=== PATIENT | female | born 1985 | race Caucasian/White ===

== ENCOUNTER 2021-05-14 20:28 | Emergency (ER) | payer OTHER, SELFPAY ==
[2021-05-14 20:42] VITALS: BP 143/85; PULSE 71; RESP 18; TEMP 36.7; O2SAT 100; BMI 48.5
--- NOTE | 2021-05-14 21:18 | PC.NURSE ---
Pt is wearing own jeans as we do not have pants available in her size. Pockets were checked/empty.
[2021-05-14 21:21] LABS: COVID19 -Nasal RAPID Negative (Negative)
[2021-05-14 21:26] LABS: UR Morphine/Opiate cutoff 300 Negative (Negative); Ur Creatinine 20 (Normal); Ur Specific Gravity 1.015 (Normal); Urine Amphetamines Negative (Negative); Urine Cocaine Negative (Negative); Urine Methamphetamines Negative (Negative); Urine Phencyclidine Negative (Negative); Urine Tetrahydrocannabinol Negative (Negative); Urine pH 7 (Normal)
[2021-05-14 21:27] LABS: Urine Barbiturates Negative (Negative); Urine Benzodiazepines Negative (Negative); Urine MDMA Negative (Negative); Urine Methadone Negative (Negative); Urine Oxycodone Negative (Negative); Urine Tricyclic Antidepressant Negative (Negative)
[2021-05-14 21:28] LABS: Add Manual Diff / Slide Review NO; Basophils Absolute Auto 0 /uL (0-100); Basophils Percent Auto 0.5 % (0-2); Eosinophils Absolute Auto 100 /uL (0-450); Eosinophils Percent Auto 1.2 % (2-4); Hematocrit 39.7 % (36-46); Hemoglobin 13.5 g/dL (12.0-16.0); Lymphocytes Absolute Auto 2200 /uL (1100-4500); Lymphocytes Percent Auto 26.1 % (25-40); Mean Corpuscular Hemoglobin 30.5 PG (26-34); Mean Corpuscular Volume 89.7 fL (80-100); Monocytes Absolute Auto 1000 /uL (0-900); Neutrophils Absolute Auto 4900 /uL (1500-7000); Neutrophils Percent Auto 60.2 % (50-75); Platelet Count 238 X10^3/uL (150-400); Red Blood Cell Count 4.43 X10^6/uL (4.0-5.2); Red Cell Distribution Width 13.6 % (11.6-14.8); White Blood Cell Count 8.2 X10^3/uL (4.5-11.0)
[2021-05-14 21:32] LABS: Acetaminophen < 10 ug/mL (10-30); Alanine Aminotransferase 28 IU/L (<35); Albumin 4.3 g/dL (3.5-5.0); Albumin Globulin Ratio 1.7 (1.0-2.8); Alkaline Phosphatase 62 U/L (38-126); Aspartate Aminotransferase 28 IU/L (14-36); BUN Creatinine Ratio 12.1 (6-22); Bilirubin Total 0.3 mg/dL (0.2-1.3); Blood Urea Nitrogen 11 mg/dL (7-17); Calcium 8.8 mg/dL (8.4-10.2); Carbon Dioxide 33 mmol/L (22-32); Chloride 100 mmol/L (98-107); Estimated Glomerular Filt Rate > 60.0 mL/min (>60); Ethanol (ETOH) < 10 mg/dL; Globulin 2.6 g/dL (1.7-4.1); Glucose 81 mg/dL (70-100); HEMOLYSIS < 15 (0-50); Salicylate < 1.0 mg/dL (<20); Sodium 138 mmol/L (137-145); Total Protein 6.9 g/dL (6.3-8.2)
[2021-05-14 22:04] LABS: Free T4, Direct Thyroxine 1.02 ng/dL (0.78-2.19)
--- NOTE | 2021-05-14 22:40 | PC.NURSE ---
The patient is a healthy 35 year old female who has a positive and supportive home environment with friends and family within close proximity. She states that she feel depressed and wants to stop hurting all the time and wants to run away so that her mental health is not a burden on her family. She attributes these feelings to passed trauma and is currently being seen by a psychiatrist for these issues. She stated that she saw a counselor in the past but stopped going because she doesn't want to face the hard questions and she is also a private person and doesn't want people to know how messed up she is and she felt her counselor was seeing into to her to well and that scared her so she quit going. She has two girls at home and a significant other and they are going to be moving into a new home soon which they have been building with [employer]. Despite positive things in her life she still can't escape her feelings of hopelessness, depression, and fear. 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
--- NOTE | 2021-05-14 23:06 | PC.NURSE ---
Her significant other's name is Larissa
--- NOTE | 2021-05-14 23:18 | ED_ITS ---
HPI - Psych <Amanda Durand DO - Last Filed: 05/18/21 18:25> General Chief Complaint: Psychiatric Symptoms Stated Complaint: Not having a good day sucidal Time Seen by Provider: 05/14/21 22:59 Source: patient Mode of arrival: Ambulatory History of Present Illness HPI Narrative: Patient is a 35-year-old female with history of hypothyroid, depression anxiety presenting today with suicidal ideations. She says that she has had ongoing depression progressively getting worse. She has had suicidal attempts or [place] thoughts she has tried to take pills or driveway however her partner stops her from doing any such thing. She has not been hospitalized for mental illness as an adult her mother had threatened it as a child. She said she has had mental health illness for most of her life. She has 2 children 2 girls 9-year-old and 7-year-old she says that she feels extremely anxious without them at all times they went to a birthday libertarian today without her fall causing her to have severe anxiety. She then took the car keys and started driving. She was not sure where she was going she wanted to go to the bridge to potentially jump off however she missed her turn and came here instead. She is currently voluntary seeking treatment. She does see Psychiatry Phoebe Boogie, him she says has helped her a lot. Related Data Home Medications Medication Instructions Recorded Confirmed alprazolam 0.5 mg tablet 0.5 mg PO TID PRN 05/14/21 05/14/21 aripiprazole 2 mg tablet 2 mg PO BID 05/14/21 05/14/21 lamotrigine 100 mg tablet 200 mg PO DAILY 05/14/21 05/14/21 levothyroxine 88 mcg tablet 88 mcg PO DAILY 05/14/21 05/14/21 methylphenidate HCl 30 mg biphasic 30 mg PO DAILY 05/14/21 05/14/21 50-50 capsule,extended release primidone 50 mg tablet 100 mg PO QPM 05/14/21 05/14/21 venlafaxine 150 mg 150 mg PO DAILY 05/14/21 05/14/21 capsule,extended release 24 hr Allergies Allergy/AdvReac Type Severity Reaction Status Date / Time hydrocodone Allergy Hallucinati Verified 05/14/21 20:42 ng Review of Systems <DO John Corbin Last Filed: 05/18/21 18:25> Review of Systems Narrative: GENERAL: Denies chills, fatigue, malaise, fever, sweats, travel HEENT: Denies sinus pain, ear pain, sore throat, difficulty swallowing, neck pain RESPIRATORY: Denies dyspnea, cough, wheezing, hemoptysis, sputum. CARDIOVASCULAR: Denies chest pain, palpitations, orthopnea, edema GASTROINTESTINAL: Denies nausea, vomiting, abdominal pain, diarrhea, constipation, melena. : Denies dysuria, frequency, incontinence, hematuria, urinary retention, flank pain. MUSCULOSKELETAL: Denies weakness, joint pain, or bony pain SKIN: No rash, no erythema, no pruritus NEUROLOGIC: Denies weakness, dizziness, headache, numbness, change in speech, confusion PSYCHIATRIC: See HPI 12 point review of systems is negative except for those stated above and HPI Patient History <Amanda Durand DO - Last Filed: 05/18/21 18:25> Social History Smoking Status: Never smoker Smoking Status: Never smoker Substance Use Type: does not use Exam <Amanda Durand DO - Last Filed: 05/18/21 18:25> Initial Vital Signs Initial Vital Signs: Vital Signs Temperature 98.1 F 05/14/21 20:42 Pulse Rate 71 05/14/21 20:42 Respiratory Rate 18 05/14/21 20:42 Blood Pressure 143/85 H 05/14/21 20:42 Pulse Oximetry 100 05/14/21 20:42 GENERAL: Well-appearing 35-year-old female drawing at bedside cooperative CARDIOVASCULAR: peripheral pulses in tact, cap refill <2 sec RESPIRATORY: No respiratory distress, speaks in full sentences without difficulty EXTREMITIES: Normal range of motion, no clubbing or edema. Neurovascularly intact NEUROLOGICAL: Cranial nerves II through XII grossly intact. Normal gait and speech. SKIN: Warm, dry, no petechiae, no rashes or lesions. <Pilar Araujo DO - Last Filed: 05/15/21 18:35> Initial Vital Signs Initial Vital Signs: Vital Signs Temperature 98.1 F 05/14/21 20:42 Pulse Rate 71 05/14/21 20:42 Respiratory Rate 18 05/14/21 20:42 Blood Pressure 143/85 H 05/14/21 20:42 Pulse Oximetry 100 05/14/21 20:42 Course <Amanda Durand DO - Last Filed: 05/18/21 18:25> Orders Ordered: Discontinued Medications Lorazepam (Lorazepam 0.5 Mg Tablet) 1 mg PO NOW ONE Stop: 05/15/21 07:44 Last Admin: 05/15/21 07:48 Dose: 1 mg Documented by: NUNU Vital Signs Vital signs: Vital Signs - 8 hr 05/15/21 11:06 Pulse Rate 66 Respiratory Rate 16 Blood Pressure 110/71 Pulse Oximetry 99 <Pilar Araujo DO - Last Filed: 05/15/21 18:35> Orders Ordered: Discontinued Medications Lorazepam (Lorazepam 0.5 Mg Tablet) 1 mg PO NOW ONE Stop: 05/15/21 07:44 Last Admin: 05/15/21 07:48 Dose: 1 mg Documented by: NUNU Reevaluation(s) Reevaluation #1: Patient is feeling quite anxious. We reviewed what she discussed with Dr. Durand overnight. She has been in touch with her family and states she gets very anxious when she is out of her normal pattern. She does normally take Xanax at and we discussed trying a dose of this. PAPER PROCESSING MACHINE HELPER should be here at noon today. Also going to get her some breakfast. Patient is agreeable to this. Time: 07:43 Reevaluation #2: Patient and I reviewed she cannot be medically cleared until 9:30-10pm tonight and will potentially be here overnight until decision is made about plan and safety whether she is safe to return home or needs to go to a facility. Patient expresses her understanding. Vital Signs Vital signs: Vital Signs - 8 hr 05/15/21 11:06 Pulse Rate 66 Respiratory Rate 16 Blood Pressure 110/71 Pulse Oximetry 99 MDM - Psych <Amanda Durand, DO - Last Filed: 05/18/21 18:25> Lab Data Result diagrams: 05/14/21 21:10 05/14/21 21:10 Labs: Lab Results 05/14/21 05/14/21 05/14/21 Range/Units 20:55 20:55 21:10 WBC 8.2 (4.5-11.0) X10^3/uL RBC 4.43 (4.0-5.2) X10^6/uL Hgb 13.5 (12.0-16.0) g/dL Hct 39.7 (36-46) % MCV 89.7 (80-100) fL MCH 30.5 (26-34) PG MCHC 34.0 (30-36) % RDW 13.6 (11.6-14.8) % Plt Count 238 (150-400) X10^3/uL Neut % (Auto) 60.2 (50-75) % Lymph % (Auto) 26.1 (25-40) % [place] % (Auto) 12.0 (3-14) % Eos % (Auto) 1.2 L (2-4) % Baso % (Auto) 0.5 (0-2) % Neut # (Auto) 4900 (6443-4480) /uL Lymph # (Auto) 2200 (7734-9364) /uL [place] # (Auto) 1000 H (0-900) /uL Eos # (Auto) 100 (0-450) /uL Baso # (Auto) 0 (0-100) /uL Sodium (137-145) mmol/L Potassium (3.4-5.1) mmol/L Chloride (98-107) mmol/L Carbon Dioxide (22-32) mmol/L BUN (7-17) mg/dL Creatinine (0.52-1.04) mg/dL Estimated GFR (>60) mL/min BUN/Creatinine Ratio (6-22) Glucose (70-100) mg/dL Calcium (8.4-10.2) mg/dL Total Bilirubin (0.2-1.3) mg/dL AST (14-36) IU/L ALT (<35) IU/L Alkaline Phosphatase (38-126) U/L Total Protein (6.3-8.2) g/dL Albumin (3.5-5.0) g/dL Globulin (1.7-4.1) g/dL Albumin/Globulin Ratio (1.0-2.8) TSH (0.47-4.68) uIU/mL Free T4 (0.78-2.19) ng/dL Salicylates (<20) mg/dL U Opiates 300ng/mL cut Negative (Negative) Ur Oxycodone Screen Negative (Negative) Urine Methadone Screen Negative (Negative) Acetaminophen (10-30) ug/mL Ur Barbiturates Screen Negative (Negative) U Tricyclic Antidepress Negative (Negative) Ur Phencyclidine Scrn Negative (Negative) Ur Amphetamines Screen Negative (Negative) U Methamphetamines Scrn Negative (Negative) Ur MDMA Scrn (Ecstasy) Negative (Negative) U Benzodiazepines Scrn Negative (Negative) Urine Cocaine Screen Negative (Negative) U Marijuana (THC) Screen Negative (Negative) Ethyl Alcohol ( - 10) mg/dL SARS-CoV-2 (PCR) Negative (Negative) 05/14/21 05/14/21 Range/Units 21:10 21:10 WBC (4.5-11.0) X10^3/uL RBC (4.0-5.2) X10^6/uL Hgb (12.0-16.0) g/dL Hct (36-46) % MCV (80-100) fL MCH (26-34) PG MCHC (30-36) % RDW (11.6-14.8) % Plt Count (150-400) X10^3/uL Neut % (Auto) (50-75) % Lymph % (Auto) (25-40) % [place] % (Auto) (3-14) % Eos % (Auto) (2-4) % Baso % (Auto) (0-2) % Neut # (Auto) (6628-5619) /uL Lymph # (Auto) (5645-0974) /uL [place] # (Auto) (0-900) /uL Eos # (Auto) (0-450) /uL Baso # (Auto) (0-100) /uL Sodium 138 (137-145) mmol/L Potassium 4.0 (3.4-5.1) mmol/L Chloride 100 (98-107) mmol/L Carbon Dioxide 33 H (22-32) mmol/L BUN 11 (7-17) mg/dL Creatinine 0.91 (0.52-1.04) mg/dL Estimated GFR > 60.0 (>60) mL/min BUN/Creatinine Ratio 12.1 (6-22) Glucose 81 (70-100) mg/dL Calcium 8.8 (8.4-10.2) mg/dL Total Bilirubin 0.3 (0.2-1.3) mg/dL AST 28 (14-36) IU/L ALT 28 (<35) IU/L Alkaline Phosphatase 62 (38-126) U/L Total Protein 6.9 (6.3-8.2) g/dL Albumin 4.3 (3.5-5.0) g/dL Globulin 2.6 (1.7-4.1) g/dL Albumin/Globulin Ratio 1.7 (1.0-2.8) TSH 2.00 (0.47-4.68) uIU/mL Free T4 1.02 (0.78-2.19) ng/dL Salicylates < 1.0 (<20) mg/dL U Opiates 300ng/mL cut (Negative) Ur Oxycodone Screen (Negative) Urine Methadone Screen (Negative) Acetaminophen < 10 L (10-30) ug/mL Ur Barbiturates Screen (Negative) U Tricyclic Antidepress (Negative) Ur Phencyclidine Scrn (Negative) Ur Amphetamines Screen (Negative) U Methamphetamines Scrn (Negative) Ur MDMA Scrn (Ecstasy) (Negative) U Benzodiazepines Scrn (Negative) Urine Cocaine Screen (Negative) U Marijuana (THC) Screen (Negative) Ethyl Alcohol < 10 ( - 10) mg/dL SARS-CoV-2 (PCR) (Negative) Point of Care Testing Test Results Negative Urine Dip Bedside Urine Glucose Negative Bedside Urine Bilirubin - Negative Bedside Urine Ketone - Negative Urine Specific [place] 1.015 Bedside Urine Occult Blood - Negative Bedside Urine pH 6.5 Bedside Urine Protein - Negative Bedside Urine Urobilinogen - Negative Bedside Urine Nitrite - Negative Bedside Urine Leukocytes - Negative Esterase MDM Narrative Medical decision making narrative: The patient is voluntary and cooperative in the emergency department. Wants to go to a facility awaiting for social work evaluation. Signed out to Dr. Araujo This is a 35-year-old female with known history of depression, suicidal ideation who is currently here voluntarily. Plan is for patient to be with PAPER PROCESSING MACHINE HELPER today. Patient is feeling quite anxious this morning she did have any medications overnight so dose of Ativan poor oral was ordered. On repeat examination patient is feeling improved after discussion with PAPER PROCESSING MACHINE HELPER. They have a clear plan in place for safety, resources and patient and both feel safe to return home patient states she feels stabilized at this point and after discussion is able to contract for safety. Patient discharged home with her . <Pilar Araujo, DO - Last Filed: 05/15/21 18:35> Lab Data Labs: Lab Results 0205/14/21 05/14/21 Range/Units 20:55 20:55 21:10 WBC 8.2 (4.5-11.0) X10^3/uL RBC 4.43 (4.0-5.2) X10^6/uL Hgb 13.5 (12.0-16.0) g/dL Hct 39.7 (36-46) % MCV 89.7 (80-100) fL MCH 30.5 (26-34) PG MCHC 34.0 (30-36) % RDW 13.6 (11.6-14.8) % Plt Count 238 (150-400) X10^3/uL Neut % (Auto) 60.2 (50-75) % Lymph % (Auto) 26.1 (25-40) % [place] % (Auto) 12.0 (3-14) % Eos % (Auto) 1.2 L (2-4) % Baso % (Auto) 0.5 (0-2) % Neut # (Auto) 4900 (2542-1007) /uL Lymph # (Auto) 2200 (1112-6206) /uL [place] # (Auto) 1000 H (0-900) /uL Eos # (Auto) 100 (0-450) /uL Baso # (Auto) 0 (0-100) /uL Sodium (137-145) mmol/L Potassium (3.4-5.1) mmol/L Chloride (98-107) mmol/L Carbon Dioxide (22-32) mmol/L BUN (7-17) mg/dL Creatinine (0.52-1.04) mg/dL Estimated GFR (>60) mL/min BUN/Creatinine Ratio (6-22) Glucose (70-100) mg/dL Calcium (8.4-10.2) mg/dL Total Bilirubin (0.2-1.3) mg/dL AST (14-36) IU/L ALT (<35) IU/L Alkaline Phosphatase (38-126) U/L Total Protein (6.3-8.2) g/dL Albumin (3.5-5.0) g/dL Globulin (1.7-4.1) g/dL Albumin/Globulin Ratio (1.0-2.8) TSH (0.47-4.68) uIU/mL Free T4 (0.78-2.19) ng/dL Salicylates (<20) mg/dL U Opiates 300ng/mL cut Negative (Negative) Ur Oxycodone Screen Negative (Negative) Urine Methadone Screen Negative (Negative) Acetaminophen (10-30) ug/mL Ur Barbiturates Screen Negative (Negative) U Tricyclic Antidepress Negative (Negative) Ur Phencyclidine Scrn Negative (Negative) Ur Amphetamines Screen Negative (Negative) U Methamphetamines Scrn Negative (Negative) Ur MDMA Scrn (Ecstasy) Negative (Negative) U Benzodiazepines Scrn Negative (Negative) Urine Cocaine Screen Negative (Negative) U Marijuana (THC) Screen Negative (Negative) Ethyl Alcohol ( - 10) mg/dL SARS-CoV-2 (PCR) Negative (Negative) 05/14/21 05/14/21 Range/Units 21:10 21:10 WBC (4.5-11.0) X10^3/uL RBC (4.0-5.2) X10^6/uL Hgb (12.0-16.0) g/dL Hct (36-46) % MCV (80-100) fL MCH (26-34) PG MCHC (30-36) % RDW (11.6-14.8) % Plt Count (150-400) X10^3/uL Neut % (Auto) (50-75) % Lymph % (Auto) (25-40) % [place] % (Auto) (3-14) % Eos % (Auto) (2-4) % Baso % (Auto) (0-2) % Neut # (Auto) (1138-4802) /uL Lymph # (Auto) (1445-5070) /uL [place] # (Auto) (0-900) /uL Eos # (Auto) (0-450) /uL Baso # (Auto) (0-100) /uL Sodium 138 (137-145) mmol/L Potassium 4.0 (3.4-5.1) mmol/L Chloride 100 (98-107) mmol/L Carbon Dioxide 33 H (22-32) mmol/L BUN 11 (7-17) mg/dL Creatinine 0.91 (0.52-1.04) mg/dL Estimated GFR > 60.0 (>60) mL/min BUN/Creatinine Ratio 12.1 (6-22) Glucose 81 (70-100) mg/dL Calcium 8.8 (8.4-10.2) mg/dL Total Bilirubin 0.3 (0.2-1.3) mg/dL AST 28 (14-36) IU/L ALT 28 (<35) IU/L Alkaline Phosphatase 62 (38-126) U/L Total Protein 6.9 (6.3-8.2) g/dL Albumin 4.3 (3.5-5.0) g/dL Globulin 2.6 (1.7-4.1) g/dL Albumin/Globulin Ratio 1.7 (1.0-2.8) TSH 2.00 (0.47-4.68) uIU/mL Free T4 1.02 (0.78-2.19) ng/dL Salicylates < 1.0 (<20) mg/dL U Opiates 300ng/mL cut (Negative) Ur Oxycodone Screen (Negative) Urine Methadone Screen (Negative) Acetaminophen < 10 L (10-30) ug/mL Ur Barbiturates Screen (Negative) U Tricyclic Antidepress (Negative) Ur Phencyclidine Scrn (Negative) Ur Amphetamines Screen (Negative) U Methamphetamines Scrn (Negative) Ur MDMA Scrn (Ecstasy) (Negative) U Benzodiazepines Scrn (Negative) Urine Cocaine Screen (Negative) U Marijuana (THC) Screen (Negative) Ethyl Alcohol < 10 ( - 10) mg/dL SARS-CoV-2 (PCR) (Negative) Point of Care Testing Test Results Negative Urine Dip Bedside Urine Glucose Negative Bedside Urine Bilirubin - Negative Bedside Urine Ketone - Negative Urine Specific [place] 1.015 Bedside Urine Occult Blood - Negative Bedside Urine pH 6.5 Bedside Urine Protein - Negative Bedside Urine Urobilinogen - Negative Bedside Urine Nitrite - Negative Bedside Urine Leukocytes - Negative Esterase MDM Narrative Medical decision making narrative: This is a 35-year-old female with known history of depression, suicidal ideation who is currently here voluntarily. Plan is for patient to be with PAPER PROCESSING MACHINE HELPER today. Patient is feeling quite anxious this morning she did have any medications overnight so dose of Ativan poor oral was ordered. On repeat examination patient is feeling improved after discussion with PAPER PROCESSING MACHINE HELPER. They have a clear plan in place for safety, resources and patient and both feel safe to return home patient states she feels stabilized at this point and after discussion is able to contract for safety. Patient discharged home with her . Discharge Plan Departure Patient Disposition: Home Clinical Impression: Suicidal thoughts Instructions: DI for Suicidal Ideation-Adult Activity Restrictions/Additional Instructions: Follow up with your physician and therapist. Please use the resources given to you by the social studies teacher today. Please continue home medications as prescribed. If you're feeling suicidal or having suicidal thoughts, contact the suicide hotline (this is also the [facility] number for self referral and counseling services as an outpatient) . Please return or call 911 if you are thought having thoughts of harming yourself or others, if any time you do not feel safe or have any other new or concerning symptoms. Prescriptions: No Action primidone 50 mg tablet 100 mg PO QPM 0RF venlafaxine 150 mg capsule,extended release 24hr 150 mg PO DAILY 0RF Label Comments: TAKE 1 CAPSULE BY MOUTH EVERY DAY levothyroxine 88 mcg tablet 88 mcg PO DAILY 0RF Label Comments: TAKE 1 TABLET BY MOUTH EVERY DAY IN THE MORNING ON AN EMPTY STOMACH alprazolam 0.5 mg tablet 0.5 mg PO TID PRN (Reason: Anxiety) 0RF Label Comments: TAKE 1/2 TO 1 TABLET BY MOUTH UP TO THREE TIMES DAILY NEEDED FOR PANIC lamotrigine 100 mg tablet 200 mg PO DAILY 0RF methylphenidate HCl 30 mg capsule,ER biphasic 50-50 30 mg PO DAILY 0RF Label Comments: TAKE 1 CAPSULE BY MOUTH EVERY MORNING aripiprazole 2 mg tablet 2 mg PO BID 0RF Label Comments: TAKE 1 TABLET BY MOUTH TWICE DAILY Referrals: Hazel Irene PA-C [Primary Care Provider] -
--- NOTE | 2021-05-15 01:02 | PC.NURSE ---
the patient is sleeping
--- NOTE | 2021-05-15 01:11 | PC.NURSE ---
The patient has been sleeping comfortably. She does not appear to be in distress while asleep.
--- NOTE | 2021-05-15 06:52 | PC.NURSE ---
Pt awake and sitting on gurney with Cell phone. Pt states I would like to leave This SEAM TAPER MACHINE suggested that the Pt wait to speak with the BILINGUAL ELEMENTARY SCHOOL TEACHER to come up with a plan to better equip the Pt tool box on how to deal with her feeling better in the future, Pt responded well to this suggestion and is willing to wait to speak with BILINGUAL ELEMENTARY SCHOOL TEACHER. Pt now sitting quietly on gurney with phone again.
[2021-05-15 07:23] VITALS: BP 109/72; PULSE 63; RESP 18; TEMP 36.5; O2SAT 99
[2021-05-15] MEDS: LORazepam 0.5 MG TABLET 1 MG PO (07:48)
--- NOTE | 2021-05-15 08:19 | PC.NURSE ---
Patient reports that she was feeling increased anxiety about being away from her kids while they were at an event. Per patient, she has history of anxiety, major depressive disorder, PTSD, auditory hallucinations, ADHD and history of multiple suicide attempts by overdose. She sees an outpatient psychiatrist in the community, last saw her provider several days ago. She reports that [place] to jump [place] the [place], but that she missed the turn and drove instead to the hospital. She reports that she is no longer feeling suicidal, and that she wishes to return home because she misses her family.
[2021-05-15 11:06] VITALS: BP 110/71; PULSE 66; RESP 16; O2SAT 99
--- NOTE | 2021-05-15 12:14 | CM.SWNOTE ---
Patient is a 35 yo female who was admitted to [facility] ED on 05/14/21 evening for suicidal ideation. Pt has [employer] for insurance and her PCP is Hazel Irene. EMR was reviewed. Per ED KENIA SANDOVAL Consult due to pt's suicidal ideation and possible plan. See SHOT BLASTER assessment below: KENIA Mcdermott Discharge Planning/Care Management ED Psychiatric Symptoms Assessment Start: 05/14/21 20:54 Freq: Status: Discharge Protocol: Document 05/14/21 22:36 LORENE (Rec: 05/14/21 22:47 [email or web address] [id number]) Psychiatric Symptoms Assessment Symptoms/Complaint Feels Depressed Onset today Duration Changing Over Time History Of Same Yes Context Unknown Improves With Medication,Therapy Associated Psychiatric Symptoms Depression,Suicidal Ideation Associated Symptoms Confusion Details of Plan take pills or drive off bridge Level of Consciousness Alert Patient Orientation Name,Age,Birthday,Month,Date, Year,Day of Week,Place, Situation Patient Behavior/Mood Crying/Tearful,Fearful, Talkative Ability to Follow Directions Excellent Patient Cognition Impaired No Affect Description Depressed,Tearful Patient Appearance Well Groomed Hallucination Type None Depressive Symptoms Feelings of Guilt,Feelings of Worthlessness,Hopelessness,Low Self Esteem,Unhappiness Feelings of Hopelessness Yes Suicidal Ideation Frequent Suicide Plan Clear Homicidal Ideation None 05/14/21 22:40 Nurse Note by Mikhail Elena The patient is a healthy 35 year old female who has a positive and supportive home environment with friends and family within close proximity. She states that she feel depressed and wants to stop hurting all the time and wants to run away so that her mental health is not a burden on her family. She attributes these feelings to passed trauma and is currently being seen by a psychiatrist for these issues. She stated that she saw a counselor in the past but stopped going because she doesn't want to face the hard questions and she is also a private person and doesn't want people to know how messed up she is and she felt her counselor was seeing into to her to well and that scared her so she quit going. She has two girls at home and a significant other and they are going to be moving into a new home soon which they have been building with [employer]. Despite positive things in her life she still can't escape her feelings of hopelessness, depression, and fear. 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 Initialized on 05/14/21 22:40 - END OF NOTE Document 05/15/21 01:09 LORENE (Rec: 05/15/21 01:11 [id number]) Psychiatric Symptoms Assessment Symptoms/Complaint Feels Depressed Duration Intermittent History Of Same Yes Context Unknown Improves With Medication Worsens With Nothing Associated Psychiatric Symptoms Depression,Suicidal Ideation Associated Symptoms Denies Other Symptoms If Self Harm Admits Thoughts of Self Harm, Has Plans Level of Consciousness Drowsy 05/15/21 01:11 Nurse Note by Mikhail Elena The patient has been sleeping comfortably. She does not appear to be in distress while asleep. Initialized on 05/15/21 01:11 - END OF NOTE Document 05/15/21 03:00 HNG (Rec: 05/15/21 03:49 HNG [id number]) Psychiatric Symptoms Assessment Patient Behavior/Mood Asleep Document 05/15/21 05:00 HNG (Rec: 05/15/21 06:18 HNG [id number]) Psychiatric Symptoms Assessment Symptoms/Complaint Suicidal Ideation Duration Getting Worse History Of Same Yes Associated Psychiatric Symptoms Depression,Suicidal Ideation If Self Harm Admits Thoughts of Self Harm, Has Plans Details of Plan Reports was driving to the bridge and missed the turn. Ended at the hospital. Level of Consciousness Alert,Appropriate,Awake Patient Orientation Name,Age,Birthday,Month,Date, Year,Day of Week,Place, Situation Patient Behavior/Mood Cooperative Ability to Follow Directions Excellent Patient Cognition Impaired No Document 05/15/21 08:13 NL (Rec: 05/15/21 08:24 NL [id number]) Psychiatric Symptoms Assessment Symptoms/Complaint Feels Depressed Onset 05/14/21 Duration Changing Over Time History Of Same Yes Context Significant Life Stressor Improves With Medication Worsens With Nothing Associated Psychiatric Symptoms Depression,Suicidal Ideation Associated Symptoms Denies Other Symptoms If Self Harm Admits Thoughts of Self Harm, Has Plans Details of Plan Plan at time was to [place]. Currently reports that she is feeling better, and is no longer feeling suicidal. Level of Consciousness Alert,Awake,Follows Commands Patient Orientation Name,Age,Birthday,Month,Date, Place,Situation Patient Behavior/Mood Anxious,Cooperative,Crying/ Tearful Ability to Follow Directions Excellent Patient Cognition Impaired No Affect Description Anxious,Depressed Patient Appearance Well Groomed Hallucination Type None Delusion Description Not Present Thought Process: Normal Depressive Symptoms Crying Spells,Difficulty Sleeping,Increased Anxiety,Low Self Esteem Major Depressive Episode Yes Feelings of Hopelessness No Suicidal Ideation Frequent Suicide Plan Clear,Specific,Feasible,High Lethality Homicidal Ideation None Nausea/Vomiting None 05/15/21 08:19 Nurse Note by Tarik Hammonds Patient reports that she was feeling increased anxiety about being away from her kids while they were at an event. Per patient, she has history of anxiety, major depressive disorder, PTSD, auditory hallucinations, ADHD and history of multiple suicide attempts by overdose. She sees an outpatient psychiatrist in the community, last saw her provider several days ago. She reports that [place] to jump [place] the [place], but that she missed the turn and drove instead to the hospital. She reports that she is no longer feeling suicidal, and that she wishes to return home because she misses her family. Initialized on 05/15/21 08:19 - END OF NOTE SHOT BLASTER - Technical Recruiter Assessment Start: 05/15/21 11:49 Freq: Status: Active Protocol: Document 05/15/21 11:49 BF (Rec: 05/15/21 12:14 [id number]) SHOT BLASTER/Technical Recruiter Assessment Start date 05/15/21 Visit Start Time 09:00 End date 05/15/21 Visit End Time 09:30 Total time Care Management spent on 60 min patient visit-in minutes Presenting Problem Patient was admitted to the ED for suicidal ideation with a plan to drive off [place] Precipitating Event(s) Pt has had increased stress at work, her home routine with her kids has been disrupted with birthday parties, and lack of counseling past few months Patient Strengths Pt is very insightful and actively seeking support, has been calm and cooperative and voluntarily stayed in ED overnight Current Behavioral Health Provider(s) Psychiatrist Phoebe Boogie in [facility], Provider, Ph. # [facility]. Hx Mental Health and Chemical Denies ST[facility]EN[facility] but has long hx of Dependency depression and PTSD and unresolved trauma Psychiatric Hospitalizations (date(s)/ Pt denies any hx of Inpt MH tx location) Psychosocial information & Support Pt lives with partner Stephen Little and 2 children ages 7 and 9 yo School/Work Pt works at [email or web address] in [place] Legal Matters - Outstanding Issues Denies Orientation (Person/Place/Time) A&O x4 Stated Mood Anxious, denies current suicidal ideation Affect (Congruent with Mood?) Calm and cooperative, congruent with stated mood Thought Content - Specify/Describe Denies current auditory or Obsessions, Delusions, Hallucinations visual disturbances but endorses hx of auditory hallucinations from trauma Thought Processes (Iqphxni-Fmztcylk-Tsby Logical and goal oriented Kggkmgyl-Jyrotvmr-Pwgiqulozm- Elbchifboubyux-Dnqsqoz-Bvuqiakrijxc- Thought Blocking) Speech (Dhrazw-Nnfy-Tpibqdw-Rapid-Soft- Normal, soft Loud-Pressured) Motor (Qrylyf-Xwuvghhyv-Cddi-Other) Normal Insight (Lbit-Mvts-Ysla/Limited) Insight is fair to good at this time Judgement (Efrp-Dape-Yuqh/Limited) Judgement is good Impulse Control (Adequate-Impaired) Impulse control is impaired as evidenced by her driving with suicidal ideation with tentative plan to go to [place] Memory (Amvmagyjh-Kbnzvf-Vybxoi, Immediate Impaired-Intact) Concentration (Intact-Impaired) Intact Attention (Intact-Impaired) Intact Behavior (Appropriate-Inappropriate) Appropriate, calm and cooperative, relaxed Suicidal Ideation (Plan) Yes: at admit but denies active SI at this time Homicidal Ideation (Plan) No Intervention SHOT BLASTER met bedside with pt in ED 13 and explained role and she confirms that she was triggered yesterday with stress and her children being away from her at a birthday republican that was outside of their typical routine and pt's unresolved trauma was triggered which led to her impulsive decision to grab the car keys and leave with suicidal ideation to go [place] but instead came to the ED and voluntarily requested assist for stabilization. Pt remained voluntarily in ED overnight and confirms that she currently feels more stable and somewhat anxious still being away from her family but denies active or current suicidal ideation. Pt confirms a long hx of depression and anxiety as a teenager but denies any hx of Inpt MH tx but did overdose a few times as a teen/young adult. Pt has tried multiple Psychiatrists and her current Psychiatrist pt feels a good working relationship with. Pt is not currently established with a therapist as she was working with one in her Psychiatrist's office but they were begining harder work of addressing her PTSD/trauma and pt became scared of the challenging work of focusing on my trauma and she stopped going to her therapist. Pt acknowledges that her current crisis may also be a result of not having weekly therapy support for the past few months. Pt has been managing to safely parent her two children and maintain her stressful job with the support of her Sig Other Stephen and was agreeable with getting Stephen on speaker phone for further discharge planning. Stephen confirms he feels comfortable with providing transport home today and does not feel pt needs Inpt MH tx at this time. SW discussed resources and specifics on [facility] Crisis Line, Mobile Outreach Team, and [facility] and provided copies for these resources. Pt and Sig Other very appreciative and seem to have good insight and willingess to utilize resources. SW also discussed establishing with a therapist again and both were agreeable to even couples counseling to increase their communication, best support pt to reduce her impulsivity, etc.. RA Plan SHOT BLASTER feels pt has good insight, enough home and community supports, wilingness to seek out resources and supports to safely d/c home with f/u appointment with Psychiatrist tomorrow and establish with therapist again to address unresolved trauma and triggers . SHOT BLASTER updated RN and ED MD and plan of d/c to home via Sig Other Stephen's POV and close outpt follow up and MH resources provided. Pt aware she can come to the ED again if crisis occurs.
== END 2021-05-15 11:12 | disposition home or self-care (01) ==
PROVIDERS: Emergency Medicine; Emergency Provider Emergency Medicine; PCP Physician Assistant
DX: R45.851 Suicidal ideations (principal); Z20.822 Contact with and (suspected) exposure to COVID-19
CPT/HCPCS: 36415; 80053; 80305; 80320; 80329; 81003; 81025; 84439; 84443; 85025; 87635; 99283; 99284; C9803; G0480

== ENCOUNTER → 2025-03-25 08:01 | Outpatient (CLI) | payer OTHER, SELFPAY ==
--- NOTE | 2025-03-25 08:06 | DI.RAD.S_ITS ---
PROCEDURE: XR LUMBAR SPINE MIN 4V INDICATIONS: low back pain TECHNIQUE: 5 views of the lumbar spine acquired, including flexion and extension views. COMPARISON: None. FINDINGS: Bones: 5 nonrib-bearing vertebrae are present. There is normal bony alignment. No acute vertebral body compression fractures. No suspicious bony lesions. Mild multilevel spondylosis of the imaged spine most pronounced in the lower thoracic spine and thoracolumbar junction. Soft tissues: Overlying bowel gas pattern is normal. No suspicious soft tissue calcifications. Flexion/extension: There is normal range of motion, with preserved normal alignment. IMPRESSION: Lumbar spine without acute osseous abnormalities. Mild multilevel spondylosis. Normal range of motion between flexion/extension without evidence for instability. Dictated by: Stephen Tinsley M.D. on 03/25/2025 at 18:40 Approved by: Stephen Tinsley M.D. on 03/25/2025 at 18:41
--- NOTE | 2025-03-25 08:06 | DI.RAD.S_ITS ---
PROCEDURE: XR THORACIC SPINE 3V INDICATIONS: back pain TECHNIQUE: 3 views of the thoracic spine were acquired. COMPARISON: None. FINDINGS: Bones: No fractures or dislocations. No suspicious bony lesions. 12 pairs of ribs are noted, and appear intact where visualized. Mild multilevel thoracic spondylitic changes. No acute compression fractures. Soft tissues: No paravertebral stripe thickening. IMPRESSION: Thoracic spine without acute osseous abnormalities. Mild multilevel thoracic spondylosis. Dictated by: Stephen Tinsley M.D. on 03/25/2025 at 18:39 Approved by: Stephen Tinsley M.D. on 03/25/2025 at 18:39
== END ==
PROVIDERS: PCP Family Medicine; Referring Provider Physical Medicine & Rehabilitation; Visit Provider Physical Medicine & Rehabilitation
DX: M54.9 Dorsalgia, unspecified (principal); M47.815 Spondylosis without myelopathy or radiculopathy, thoracolumbar region; M47.816 Spondylosis without myelopathy or radiculopathy, lumbar region
CPT/HCPCS: 72072; 72110